=== PATIENT | female | born 1995 | race Caucasian/White ===

== ENCOUNTER → 2024-09-17 | Emergency (ER) | payer OTHER ==
[~2024-09-17] VITALS: Ht 160 cm; Wt 63.5 kg
[~2024-09-17] MED LIST: FLUC150T PO; NITR-104 PO; PHEN-704 PO
[2024-09-18 00:07] LABS: *BILIRUBIN,URIN NEGATIVE (NEGATIVE); *BLOOD, URINE 2+ (NEGATIVE); *CLARITY,URINE SLIGHTLY CLOUDY (CLEAR); *COLOR,URINE DARK YELLOW (YELLOW); *KETONES,URINE NEGATIVE (NEGATIVE); *PROTEIN,URINE NEGATIVE (NEGATIVE); *UROBILINOGEN,URINE 0.2 E.U./dl (NORMAL); LEUKOCYTE ESTERASE ,URINE 1+ (NEGATIVE); NITRITE, URINE NEGATIVE (NEGATIVE); UGLUCOSE NEGATIVE (NEGATIVE)
[2024-09-18 00:39] LABS: RBC,URINE 20-50 /HPF (0-3)
[2024-09-18 00:40] LABS: BACTERIA,URINE FEW /HPF (NONE SEEN); SQUAMOUS EPITHELIAL CELL,UR MODERATE /HPF (NONE SEEN); YEAST,URINE MODERATE /HPF (NONE SEEN)
[2024-09-18 00:41] LABS: MUCUS,URINE FEW /LPF (0-FEW)
[2024-09-18 00:42] LABS: *URINE HCG, QUAL NEGATIVE (NEGATIVE)
[2024-09-18] MEDS: PHENAZOPYRIDINE HCL 100 MG TABLET PO ONE (01:07)
[2024-09-18 01:14] VITALS: BP 101/66; TEMP 97.9; O2SAT 100
== END | disposition home or self-care (01) ==
LOC: ER 22:51
DX: B37.31 Acute candidiasis of vulva and vagina (principal); N30.90 Cystitis, unspecified without hematuria; R30.0 Dysuria; R10.2 Pelvic and perineal pain; Z79.899 Other long term (current) drug therapy
CPT/HCPCS: 84703; A4606; A4663

== ENCOUNTER 2024-10-16 16:03 | Emergency (ER) | payer OTHER ==
[~2024-10-16] VITALS: Ht 160 cm; Wt 63.5 kg
[2024-10-16 16:11] VITALS: O2SAT 99
== END 2024-10-16 16:59 | disposition home or self-care (01) ==
LOC: ER 16:14
DX: N64.4 Mastodynia (principal); Z79.899 Other long term (current) drug therapy
CPT/HCPCS: A4606; A4663